=== PATIENT | female | born 1935 | race Caucasian/White ===

== ENCOUNTER 2017-10-09 09:15 | Emergency (ER) | payer MEDICARE, OTHER ==
[~2017-10-09] VITALS: Ht 167.6 cm; Wt 107.3 kg
[~2017-10-09 09:15] MED LIST: BISO5TAB PO; CEPH500C5 PO; CITA20TA11 PO; HYDR12.5 PO; LOSA50TA3 PO; METF500T7 PO; PRAV20TA4 PO
[2017-10-09 09:55] LABS: BASOPHILS % (AUTO) 0.2 % (0-1); EOSINOPHILS # (AUTO) 0.1 X10'3 (0-0.9); HEMATOCRIT 39.8 % (35.0-45.0); HEMOGLOBIN 13.9 g/dl (12.0-16.0); LYMPHOCYTES # (AUTO) 0.9 X10'3 (1.1-4.8); LYMPHOCYTES % (AUTO) 7.5 % (21-51); MEAN CORPUSCULAR HEMOGLOBIN 30.9 PG (27.0-31.0); MEAN CORPUSCULAR HGB CONC 34.9 % (33.0-36.5); MEAN CORPUSCULAR VOLUME 88.5 FL (78-98); MEAN PLATELET VOLUME 7.6 FL (7.4-10.4); MONOCYTES # (AUTO) 0.8 X10'3 (0-0.9); MONOCYTES % (AUTO) 6.6 % (2-12); NEUTROPHILS # (AUTO) 10.4 X10'3 (1.8-7.7); NEUTROPHILS % (AUTO) 84.7 % (42-75); PLATELET COUNT 260 X10'3 (140-440); RED BLOOD COUNT 4.49 X10'6 (4.20-5.60); RED CELL DISTRIBUTION WIDTH 14.3 % (11.5-14.5); WHITE BLOOD COUNT 12.3 X10'3 (4.5-11.0)
[2017-10-09 10:05] LABS: PROTHROMBIN TIME 10.3 SECONDS (9.0-12.0)
[2017-10-09 10:06] LABS: PARTIAL THROMBOPLASTIN TIME 29 SECONDS (22-32)
[2017-10-09 10:09] LABS: ALANINE AMINOTRANSFERASE 19 U/L (12-78); ALBUMIN/GLOBULIN RATIO 1.1 (1.1-1.5); ALKALINE PHOSPHATASE 76 IU/L (46-116); ANION GAP 11 (8-16); ASPARTATE AMINO TRANSFERASE 20 U/L (10-37); BILIRUBIN,TOTAL 0.6 MG/DL (0.1-1.0); BLOOD UREA NITROGEN 16 MG/DL (7-18); BUN/CREATININE RATIO 15.2 (6.6-38.0); CHLORIDE 106 MMOL/L (99-107); CREATININE 1.05 MG/DL (0.40-0.90); GLUCOSE 140 MG/DL (70-104); POTASSIUM 3.6 MMOL/L (3.5-5.1); SODIUM 143 MMOL/L (135-145); TOTAL PROTEIN 7.7 G/DL (6.4-8.2); eGFR 50 ML/MIN
[2017-10-09] MEDS ORDERED: HYDR-565 PO (10:30)
[2017-10-09] MEDS ORDERED: CefTRIAXone 250MG inj IM ONE (10:50)
[2017-10-09] MEDS ORDERED: CefTRIAXone 250MG IM Kit w/LIDOcaine IM ONE (10:50)
[2017-10-09] MEDS ORDERED: azithromycin 250mg tablet PO ONE (10:50)
[2017-10-09 11:16] LABS: CLARITY,URINE CLEAR (Clear); COLOR,URINE STRAW (Yellow); GLUCOSE, URINE NEGATIVE (Neg); KETONES,URINE NEGATIVE (Neg); LEUKOCYTE ESTERASE ,URINE TRACE (Neg); NITRITES, URINE NEGATIVE (Neg); OCCULT BLOOD,URINE TRACE-LYSED (Neg); PROTEIN,URINE NEGATIVE (Neg); UROBILINOGEN,URINE 0.2 E.U/dL (0.2-1.0)
[2017-10-09 11:17] LABS: UA COLLECTION TYPE VOIDED
[2017-10-09 11:22] LABS: BACTERIA,URINE FEW /HPF (Neg); RBC,URINE 0-2 /HPF (0-2); SQUAMOUS EPITHELIAL CELL,UR FEW /LPF (FEW); WBC,URINE 0-4 /HPF (0-4)
[2017-10-09] MEDS ORDERED: NITR100C6 PO (11:36)
[2017-10-09 12:06] VITALS: BP 174/85
== END 2017-10-09 12:00 | disposition home or self-care (01) ==
LOC: ER 09:16
DX: M79.1 Myalgia (principal); R10.31 Right lower quadrant pain; I10 Essential (primary) hypertension; E11.9 Type 2 diabetes mellitus without complications; M19.90 Unspecified osteoarthritis, unspecified site; Z88.0 Allergy status to penicillin; Z88.8 Allergy status to other drugs, medicaments and biological substances; Z91.013 Allergy to seafood; Z79.84 Long term (current) use of oral hypoglycemic drugs; Z79.899 Other long term (current) drug therapy
CPT/HCPCS: 36415; 71045; 80053; 81001; 84484; 85025; 85610; 85730; 87088; 93005; 96372; 99285; J0696

== ENCOUNTER 2018-08-06 17:56 | Emergency (ER) | payer MEDICARE, OTHER ==
[~2018-08-06] VITALS: Ht 162.6 cm; Wt 109.0 kg
[~2018-08-06 17:56] MED LIST changes: -CEPH500C5 PO; +CITA-278 PO; -CITA20TA11 PO; +NITR100C6 PO
[2018-08-06 19:02] VITALS: BP 156/83
[2018-08-06] MEDS ORDERED: CLOT12CR TOP (19:24)
== END 2018-08-06 19:45 | disposition home or self-care (01) ==
LOC: ER 17:57
DX: B37.9 Candidiasis, unspecified (principal); I10 Essential (primary) hypertension; E11.9 Type 2 diabetes mellitus without complications; M19.90 Unspecified osteoarthritis, unspecified site; Z98.890 Other specified postprocedural states; Z88.0 Allergy status to penicillin; Z88.1 Allergy status to other antibiotic agents; Z88.8 Allergy status to other drugs, medicaments and biological substances; Z91.013 Allergy to seafood; Z79.899 Other long term (current) drug therapy
CPT/HCPCS: 99282

== ENCOUNTER 2018-08-23 11:34 | Emergency (ER) | payer MEDICARE, OTHER ==
[~2018-08-23] VITALS: Ht 162.6 cm; Wt 109.5 kg
[~2018-08-23 11:34] MED LIST changes: +CLOT12CR TOP
[2018-08-23 11:44] VITALS: BP 170/98
[2018-08-23] MEDS ORDERED: acetaminophen 325mg tablet PO ONE (12:45)
== END 2018-08-23 13:17 | disposition home or self-care (01) ==
LOC: ER 11:34
DX: S40.011A Contusion of right shoulder, initial encounter (principal); S80.12XA Contusion of left lower leg, initial encounter; S09.90XA Unspecified injury of head, initial encounter; I10 Essential (primary) hypertension; E11.9 Type 2 diabetes mellitus without complications; M19.90 Unspecified osteoarthritis, unspecified site; Z88.0 Allergy status to penicillin; Z88.1 Allergy status to other antibiotic agents; Z88.8 Allergy status to other drugs, medicaments and biological substances; Z91.013 Allergy to seafood; Z79.899 Other long term (current) drug therapy; Z98.890 Other specified postprocedural states; W18.39XA Other fall on same level, initial encounter; Y93.89 Activity, other specified; Y92.89 Other specified places as the place of occurrence of the external cause; Y99.8 Other external cause status
CPT/HCPCS: 73010; 73030; 99284

== ENCOUNTER 2019-01-18 09:27 | Emergency (ER) | payer MEDICARE, OTHER ==
[~2019-01-18] VITALS: Ht 165.1 cm; Wt 110.0 kg
[~2019-01-18 09:27] MED LIST changes: -CITA-278 PO; +CITA20TA28 PO
--- NOTE | 2019-01-18 10:24 | NUR ---
relieving RN for break, pt is resting quietly on gurkarli, forest ranger technician at bedside
[2019-01-18 10:32] LABS: BASOPHILS # (AUTO) 0.1 X10'3 (0-0.2); BASOPHILS % (AUTO) 1.1 % (0-1); EOSINOPHILS # (AUTO) 0.1 X10'3 (0-0.9); EOSINOPHILS % (AUTO) 1.6 % (0-6); HEMOGLOBIN 13.6 g/dl (12.0-16.0); LYMPHOCYTES # (AUTO) 1.2 X10'3 (1.1-4.8); LYMPHOCYTES % (AUTO) 12.4 % (21-51); MEAN CORPUSCULAR HEMOGLOBIN 30.7 PG (27.0-31.0); MEAN CORPUSCULAR VOLUME 90.1 FL (78-98); MONOCYTES # (AUTO) 0.7 X10'3 (0-0.9); MONOCYTES % (AUTO) 7.1 % (2-12); NEUTROPHILS # (AUTO) 7.4 X10'3 (1.8-7.7); NEUTROPHILS % (AUTO) 77.8 % (42-75); PLATELET COUNT 261 X10'3 (140-440); RED BLOOD COUNT 4.44 X10'6 (4.20-5.60); WHITE BLOOD COUNT 9.5 X10'3 (4.5-11.0)
[2019-01-18 10:46] LABS: ALANINE AMINOTRANSFERASE 26 U/L (12-78); ALBUMIN 3.9 G/DL (3.4-5.0); ALBUMIN/GLOBULIN RATIO 1.1 (1.1-1.5); ALKALINE PHOSPHATASE 71 IU/L (46-116); ANION GAP 9 (8-16); ASPARTATE AMINO TRANSFERASE 28 U/L (10-37); BILIRUBIN,TOTAL 0.6 MG/DL (0.1-1.0); BLOOD UREA NITROGEN 16 MG/DL (7-18); CALCIUM 8.9 MG/DL (8.5-10.1); CHLORIDE 105 MMOL/L (99-107); CREATININE 0.89 MG/DL (0.40-0.90); GLUCOSE 118 MG/DL (70-104); POTASSIUM 3.8 MMOL/L (3.5-5.1); SODIUM 139 MMOL/L (135-145); TOTAL CARBON DIOXIDE 25.4 MMOL/L (24-32); TOTAL PROTEIN 7.5 G/DL (6.4-8.2); eGFR 61 ML/MIN
[2019-01-18 10:50] LABS: PARTIAL THROMBOPLASTIN TIME 30 SECONDS (22-32)
[2019-01-18 11:32] VITALS: BP 134/81
== END 2019-01-18 11:33 | disposition home or self-care (01) ==
LOC: ER 09:28
DX: R06.02 Shortness of breath (principal); R10.84 Generalized abdominal pain; R35.0 Frequency of micturition; R20.2 Paresthesia of skin; I10 Essential (primary) hypertension; E11.9 Type 2 diabetes mellitus without complications; M19.90 Unspecified osteoarthritis, unspecified site; Z88.0 Allergy status to penicillin; Z91.013 Allergy to seafood; Z88.8 Allergy status to other drugs, medicaments and biological substances; Z79.84 Long term (current) use of oral hypoglycemic drugs; Z79.899 Other long term (current) drug therapy
CPT/HCPCS: 36415; 71045; 80053; 83880; 84484; 85025; 85610; 85730; 93005; 99284

== ENCOUNTER 2020-06-29 05:13 | Observation (INO) | payer MEDICARE, OTHER ==
[~2020-06-29] VITALS: Ht 162.6 cm; Wt 109.0 kg
[2020-06-29] VITALS (20 sets, daily range): BP systolic 101–178; BP diastolic 52–94
[~2020-06-29 05:13] MED LIST changes: +METF-900 PO; -METF500T7 PO
[2020-06-29] MEDS ORDERED: pantoprazole 40 MG vial IV ONE (06:10)
[2020-06-29] MEDS ORDERED: ondansetron/PF 4mg/2ml inj IV ONE (06:10)
[2020-06-29] MEDS ORDERED: sucralfate 1gm/10ml UD suspension PO SCH (06:10)
[2020-06-29] MEDS ORDERED: famotidine/PF 10 mg/ml inj IV ONE (06:10)
[2020-06-29] MEDS ORDERED: LIDOcaine Viscous 15ml cup MM PRN (06:10)
[2020-06-29] MEDS: mag hydrox/Alum hydrox/simeth 30ml oral suspension PO ONE ×2 (06:10→07:27)
[2020-06-29 06:30] LABS: ALANINE AMINOTRANSFERASE 26 U/L (12-78); ALBUMIN 4.1 G/DL (3.4-5.0); ALBUMIN/GLOBULIN RATIO 1.1 (1.1-1.5); ALKALINE PHOSPHATASE 78 IU/L (46-116); ANION GAP 10 (8-16); ASPARTATE AMINO TRANSFERASE 29 U/L (10-37); BLOOD UREA NITROGEN 15 MG/DL (7-18); BUN/CREATININE RATIO 18.1 (6.6-38.0); CALCIUM 9.3 MG/DL (8.5-10.1); CHLORIDE 103 MMOL/L (99-107); CREATININE 0.83 MG/DL (0.40-0.90); GLUCOSE 158 MG/DL (70-104); LIPASE 78 U/L (73-393); SODIUM 139 MMOL/L (135-145); TOTAL CARBON DIOXIDE 25.9 MMOL/L (24-32); eGFR 65 ML/MIN
[2020-06-29 06:33] LABS: POTASSIUM 4.1 MMOL/L (3.5-5.1)
[2020-06-29] MEDS ORDERED: morphine 4 MG/ML inj SYRINge IV ONE (06:55)
[2020-06-29] MEDS ORDERED: mag hydrox/Alum hydrox/simeth 30ml oral suspension ONE (07:23)
--- NOTE | 2020-06-29 07:30 | NUR ---
PT TAKEN TO CT VIA W/C BY TECH.
[2020-06-29 07:44] LABS: PARTIAL THROMBOPLASTIN TIME 25 SECONDS (22-32)
[2020-06-29] MEDS: metoclopramide 5 mg/ml inj IV ONE ×2 (07:46→07:53)
--- NOTE | 2020-06-29 07:53 | NUR ---
PT VOMTIING WHEN RETURNS FROM CT. DR SINGH ORDERS REGLAN BUT PT REFUSES.
[2020-06-29 07:56] LABS: CLARITY,URINE SLIGHTLY CLOUDY (Clear); COLOR,URINE YELLOW (Yellow); GLUCOSE, URINE NEGATIVE (Neg); KETONES,URINE NEGATIVE (Neg); LEUKOCYTE ESTERASE ,URINE NEGATIVE (Neg); NITRITES, URINE NEGATIVE (Neg); OCCULT BLOOD,URINE TRACE-INTACT (Neg); PROTEIN,URINE NEGATIVE (Neg); UROBILINOGEN,URINE 0.2 E.U/dL (0.2-1.0)
[2020-06-29 08:02] LABS: UA COLLECTION TYPE NON-SPECIFIED
[2020-06-29 08:04] LABS: BACTERIA,URINE FEW /HPF (Neg); FINE GRANULAR CAST 0-3 /LPF (NEGATIVE); HYALINE CASTS 0-3 /LPF (NEGATIVE); MUCUS STRANDS FEW /LPF (Neg); SQUAMOUS EPITHELIAL CELL,UR FEW /LPF (FEW); STARCH,URINE MODERATE /HPF (NEGATIVE); WBC,URINE 0-4 /HPF (0-4)
[2020-06-29 08:26] LABS: BASOPHILS % (AUTO) 0.2 % (0-1); EOSINOPHILS % (AUTO) 0.3 % (0-6); HEMOGLOBIN 14.1 g/dl (12.0-16.0); LYMPHOCYTES # (AUTO) 0.6 X10'3 (1.1-4.8); LYMPHOCYTES % (AUTO) 5.3 % (21-51); MEAN CORPUSCULAR HEMOGLOBIN 30.4 PG (27.0-31.0); MEAN CORPUSCULAR HGB CONC 32.9 g/dL (33.0-36.5); MEAN CORPUSCULAR VOLUME 92.5 FL (78-98); MEAN PLATELET VOLUME 7.8 FL (7.4-10.4); MONOCYTES # (AUTO) 0.1 X10'3 (0-0.9); MONOCYTES % (AUTO) 0.8 % (2-12); NEUTROPHILS # (AUTO) 11.3 X10'3 (1.8-7.7); NEUTROPHILS % (AUTO) 93.4 % (42-75); PLATELET COUNT 325 X10'3 (140-440); RED BLOOD COUNT 4.64 X10'6 (4.20-5.60); RED CELL DISTRIBUTION WIDTH 14.3 % (11.5-14.5); WHITE BLOOD COUNT 12.1 X10'3 (4.5-11.0)
[2020-06-29] MEDS ORDERED: levoFLOXACIN-Levaquin 750MG/D5 150 ML IV ONE (08:50)
[2020-06-29] MEDS ORDERED: normal saline 1000ML IV soln IVB ONE (08:50)
[2020-06-29] MEDS ORDERED: normal saline 1000ml 1,000 ML IV ONE (08:50)
[2020-06-29] MEDS ORDERED: ondansetron/PF 4mg/2ml inj IV PRN ×2 (09:05→12:20)
[2020-06-29] MEDS ORDERED: mag hydrox/Alum hydrox/simeth 30ml oral suspension PO PRN (09:05)
[2020-06-29] MEDS ORDERED: acetaminophen 325mg tablet PO PRN (09:05)
[2020-06-29] MEDS ORDERED: morphine 2 MG/ML inj. syringe IV PRN ×3 (09:05→12:20)
[2020-06-29] MEDS ORDERED: magnesium hydroxide 30ml (MOM) UD suspension PO PRN (09:05)
[2020-06-29] MEDS ORDERED: LORazepam 1 MG tablet PO ONE (09:20)
--- NOTE | 2020-06-29 09:36 | NUR ---
PT WALKS OUTSIDE AND SEEMS CONFUSED, SHE CALLED HER SON TO COME AND GET HER. CONVINCE PT TO COME BACK INTO HER ROOM AND WAIT FOR HER SON THERE.TAKE HER VIA W/C TO HER ROOM. HER SON SHOWS UP AND TALKS TO DR SINGH ABOUT WHY PT IS BEING ADMITTED. PT'S SON CONVINCES PT TO STAY. PT NOW ON THE GURNEY.
--- NOTE | 2020-06-29 10:00 | NUR ---
PT HAS PULLED OUT HER ORIGINAL IV. RESTART A SECOND IV TO RIGHT WRIST.
[2020-06-29] MEDS ORDERED: INDOCYANINE GREEN 25 MG/10 ML VIAL IV ONE (10:15)
[2020-06-29] MEDS ORDERED: BISO1TAB PO (10:31)
[2020-06-29] MEDS ORDERED: ASPI-611 PO (10:31)
[2020-06-29] MEDS ORDERED: BECL7.3A INH (10:37)
[2020-06-29] MEDS ORDERED: NYSPWD TP (10:50)
[2020-06-29] MEDS ORDERED: DIPH-735 PO (10:50)
[2020-06-29] MEDS ORDERED: ALBU6.7H9 INH (10:50)
[2020-06-29] MEDS ORDERED: DICL100G15 TOP (10:50)
[2020-06-29] MEDS ORDERED: BECL7.3A7 IH (10:50)
[2020-06-29] MEDS ORDERED: CARB15DR EACHEYE (10:53)
[2020-06-29] MEDS ORDERED: KETO5DRO75 EACHEYE (10:53)
[2020-06-29] MEDS ORDERED: KEN0.1O TP (10:53)
[2020-06-29] MEDS: normal saline 1000ml 1,000 ML IV SCH ×2 (11:06→19:29)
--- NOTE | 2020-06-29 11:52 | NUR ---
PT TAKEN TO OR FOR SURGERY VIA GURNEY BY HUDSON.
--- NOTE | 2020-06-29 11:59 | NUR ---
REPORT CALLED TO RECOVERY NURSE LUIGI.
[2020-06-29] MEDS ORDERED: LIDOcaine 1% 30ml preserv. free vial ONE (12:07)
[2020-06-29] MEDS ORDERED: BUPIVAcaine/PF 2.5 mg/ml (0.25%) 30ml vial ONE (12:07)
[2020-06-29] MEDS ORDERED: meperidine/PF 25mg/ml syringe IV PRN ×3 (12:20)
[2020-06-29] MEDS ORDERED: proCHLORperazine 10 MG/2 ml inj IV PRN (12:20)
[2020-06-29] MEDS ORDERED: ringers solution, lacted 1,000 ML IV SCH (12:20)
[2020-06-29] MEDS ORDERED: morphine 4 MG/ML inj SYRINge IV PRN (12:20)
[2020-06-29] MEDS ORDERED: sevoflurane 250ml liquid IH ONE (12:41)
[2020-06-29] MEDS ORDERED: ceFAZolin 1000mg inj ONE (12:41)
[2020-06-29] MEDS ORDERED: fentaNYL/PF 50MCG/1 ML 2ML syringe ONE (12:44)
[2020-06-29] MEDS ORDERED: aspirin 81mg tablet.DR PO SCH (12:55)
[2020-06-29] MEDS ORDERED: diphenhydrAMINE 25mg capsule PO PRN (12:55)
[2020-06-29] MEDS ORDERED: polyvinyl alcohol ophthalmic drops 15ml bottle EACHEYE PRN (12:55)
[2020-06-29] MEDS ORDERED: naphazoline/pheniramine eye 1 DROP BOTTLE EACHEYE PRN (12:55)
[2020-06-29] MEDS ORDERED: propofol inj 20 ML IV ONE (12:58)
[2020-06-29] MEDS ORDERED: rocuronium 10mg/ml inj IV ONE (12:58)
[2020-06-29] MEDS ORDERED: sugammadex 200mg/2ml injection IV ONE (14:03)
--- NOTE | 2020-06-29 14:25 | NUR ---
Received from OR via BED, accompanied by Anesthesiologist NADEEN and report given by Anesthesiolgist. PT SLEEPY, OXYGENATING 92% ON 10 LPM O2 VIA MASK, NO RESP DISTRESS NOTED. PT DENIES NAUSEA, MINIMAL C/O PAIN. 4 LARGE BANDAIDS TO ABD TROCAR SITES, CDI. VS SAO2 88-92% ON 10 LPM O2 VIA MASK, SNORING RESPIRATIONS. HYPERTENSIVE. WILL CONTINUE TO MONITOR. SCDS SLEEVES IN PLACE.
[2020-06-29] MEDS: albuterol 2.5 MG/3 ML nebule NEB PRN ×2 (15:12→19:51)
--- NOTE | 2020-06-29 15:15 | NUR ---
PT HAS WET LUNG SOUNDS WITH EXPIRATORY WHEEZES, SAO2 REMAINS 90% ON 10 LPM O2 VIA MASK. NOTIFIED ANESTHESIA, CALLED FOR RESP TX. PT IS SLOW TO AROUSE FROM ANESTHESIA, OPENS EYES NOW TO VERBAL STIMULI, NODS YES/NO TO QUESTIONS. INDICATES THAT POST OP PAIN IS MILD, NO PAIN MEDS GIVEN.
[2020-06-29] MEDS ORDERED: furosemide 20 MG/2 ML vial IV ONE ×2 (15:30→15:41)
--- NOTE | 2020-06-29 16:25 | NUR ---
Report called to receiving nurse. Transferred via BED Belongings WITH PT, 1 BAG CLOTHING AND GLASSES IN CASE. PT WAS GIVEN 20 MG OF LASIX IV, INCONTINENT OF URINE. RESPIRATIONS HAVE EASED UP, NOT LOUD AND WHEEZY. SAO2 REMAINS 90% ON 3 LPM O2 BUT PT SAYS THAT IS NOT ABNORMAL FOR HER. SHE STATES SHE HAS RESP ISSUES AND WEARS O2 AT HOME. VSS. TOLERATING PO FLUIDS WELL. TRANSFERRED TO 3 SURG IN STABLE CONDITION. Special Issues communicated to receiving nurse.
[2020-06-29] MEDS ORDERED: hydrALAZINE 20mg/ml inj. IV PRN (18:10)
--- NOTE | 2020-06-29 19:05 | NUR ---
Problems reprioritized. Patient report given, questions answered & plan of care reviewed with Fausto QUINONEZ.
[2020-06-29] MEDS: budesonide 0.5mg/2ml UD nebule IH SCH (19:51)
[2020-06-29] MEDS: lactobacillus rhamnosus 10,000 MMU CELLS/CAPSULE PO SCH (20:00)
[2020-06-29] MEDS: nystatin 15 GM powder TP SCH (20:00)
[2020-06-29] MEDS: losartan 50mg tablet PO SCH (20:00)
[2020-06-29] MEDS ORDERED: [UNRECOGNIZED DRUG - OTHER] PO SCH (21:00)
[2020-06-29] MEDS ORDERED: atenolol 25mg tablet PO SCH (21:00)
[2020-06-29] MEDS ORDERED: HYDROCHLOROTHIAZIDE PO SCH (21:00)
[2020-06-29] MEDS ORDERED: pravastatin 40mg tablet PO SCH (21:00)
[2020-06-29] MEDS ORDERED: HYDROchlorothiazide 25mg tablet PO SCH (21:00)
[2020-06-29] MEDS ORDERED: BISOPROL PO SCH (21:00)
[2020-06-29] MEDS: clotrimazole topical cream 15gm tube TP SCH (21:17)
[2020-06-29] MEDS: triamcinolone acet 0.1% cream 15gm TP SCH (21:17)
[2020-06-29] MEDS: acetaminophen 325mg tablet PO PRN (22:56)
[2020-06-30] VITALS: BP 122/75
[2020-06-30 05:25] LABS: BASOPHILS % (AUTO) 0.1 % (0-1); EOSINOPHILS % (AUTO) 0.1 % (0-6); HEMATOCRIT 34.4 % (35.0-45.0); HEMOGLOBIN 11.4 g/dl (12.0-16.0); LYMPHOCYTES # (AUTO) 0.4 X10'3 (1.1-4.8); LYMPHOCYTES % (AUTO) 2.6 % (21-51); MEAN CORPUSCULAR HEMOGLOBIN 30.4 PG (27.0-31.0); MEAN CORPUSCULAR HGB CONC 33.3 g/dL (33.0-36.5); MEAN CORPUSCULAR VOLUME 91.3 FL (78-98); MEAN PLATELET VOLUME 8.4 FL (7.4-10.4); MONOCYTES # (AUTO) 1.1 X10'3 (0-0.9); MONOCYTES % (AUTO) 7.9 % (2-12); NEUTROPHILS # (AUTO) 12.6 X10'3 (1.8-7.7); NEUTROPHILS % (AUTO) 89.3 % (42-75); PLATELET COUNT 210 X10'3 (140-440); RED BLOOD COUNT 3.76 X10'6 (4.20-5.60); RED CELL DISTRIBUTION WIDTH 14.7 % (11.5-14.5); WHITE BLOOD COUNT 14.1 X10'3 (4.5-11.0)
[2020-06-30 05:33] LABS: ALBUMIN 2.9 G/DL (3.4-5.0); ANION GAP 8 (8-16); BLOOD UREA NITROGEN 26 MG/DL (7-18); BUN/CREATININE RATIO 17.3 (6.6-38.0); CHLORIDE 103 MMOL/L (99-107); GLUCOSE 140 MG/DL (70-104); POTASSIUM 3.8 MMOL/L (3.5-5.1); SODIUM 137 MMOL/L (135-145); TOTAL CARBON DIOXIDE 25.7 MMOL/L (24-32); eGFR 33 ML/MIN
[2020-06-30] MEDS: normal saline 1000ml 1,000 ML IV SCH ×2 (05:50→15:05)
--- NOTE | 2020-06-30 06:47 | NUR ---
Patient in room [facility] 348. I have received report from Fausto QUINONEZ and had the opportunity to ask questions and assume patient care.
[2020-06-30 06:50] VITALS: BP 109/51
--- NOTE | 2020-06-30 06:57 | NUR ---
Problems reprioritized. Patient report given, questions answered & plan of care reviewed with Cody. Addendum: 06/30/20 at 0658 by Preston Kurtz RN Amended: Links added.
[2020-06-30] MEDS: losartan 50mg tablet PO SCH (07:31)
[2020-06-30] MEDS: lactobacillus rhamnosus 10,000 MMU CELLS/CAPSULE PO SCH (07:31)
[2020-06-30] MEDS: triamcinolone acet 0.1% cream 15gm TP SCH (07:32)
[2020-06-30] MEDS: acetaminophen 325mg tablet PO PRN ×2 (07:34→15:19)
[2020-06-30] MEDS: clotrimazole topical cream 15gm tube TP SCH (07:45)
[2020-06-30] MEDS: nystatin 15 GM powder TP SCH (07:46)
[2020-06-30] MEDS ORDERED: levoFLOXACIN-Levaquin 500mg/D5 100 ML IV SCH (08:00)
[2020-06-30] MEDS ORDERED: citalopram 20mg tablet PO SCH (08:00)
[2020-06-30] MEDS ORDERED: FLU VACC QS2020-21(6MOS UP)/PF 60 MCG/0.5 ML SYRINGE IMVAC ONE (10:00)
[2020-06-30 11:00] VITALS: BP 109/51
[2020-06-30] MEDS: albuterol 2.5 MG/3 ML nebule NEB PRN (11:25)
[2020-06-30] MEDS: budesonide 0.5mg/2ml UD nebule IH SCH (11:25)
--- NOTE | 2020-06-30 17:48 | NUR ---
Patient left with son, resource nurse did discharge teaching with patient in room and also removed the iv at this time. Patient left by all wheel chair with nursing staff at this time to be transported home in private vehicle.
== END 2020-06-30 15:45 | disposition home or self-care (01) ==
LOC: ER 05:13 → ED HOLD 09:02 → UNDOADMIN 09:02 → SUR 3N 11:41 → ED HOLD 16:25
PROVIDERS: ADMIT Family Medicine; ATTEND Family Medicine
DX: K80.00 Calculus of gallbladder with acute cholecystitis without obstruction (principal); Z20.828 Contact with and (suspected) exposure to other viral communicable diseases; I11.0 Hypertensive heart disease with heart failure; I50.9 Heart failure, unspecified; J96.10 Chronic respiratory failure, unspecified whether with hypoxia or hypercapnia; F32.9 Major depressive disorder, single episode, unspecified; E11.9 Type 2 diabetes mellitus without complications; E66.9 Obesity, unspecified; M19.90 Unspecified osteoarthritis, unspecified site; F41.9 Anxiety disorder, unspecified; Z23 Encounter for immunization; Z79.899 Other long term (current) drug therapy; Z88.0 Allergy status to penicillin; Z88.1 Allergy status to other antibiotic agents; Z91.013 Allergy to seafood; Z91.018 Allergy to other foods; Z88.8 Allergy status to other drugs, medicaments and biological substances
CPT/HCPCS: 36415; 47563; 71045; 74176; 80048; 80053; 81001; 82948; 83690; 83880; 84484; 85025; 85610; 85730; 87081; 87635; 93005; 94640; 94760; 96361; 96365; 96366; 96375; 99285; C9113; C9399; G0008; G0378; J0690; J1940; J1956; J2001; J2405; J2704; J3010; J3490; J7030; J7120; S2900; 88304; 96374; A4215; A4618; A7000; J2765; J7626

== ENCOUNTER 2022-03-19 15:00 | Emergency (ER) | payer MEDICARE, OTHER ==
[~2022-03-19] VITALS: Ht 162.6 cm; Wt 100.0 kg
[~2022-03-19 15:00] MED LIST changes: +ALBU6.7H9 INH; +ASPI-611 PO; +BECL7.3A7 IH; +BISO1TAB PO; -BISO5TAB PO; +CARB15DR EACHEYE; +DICL100G15 TOP; +DIPH-735 PO; -HYDR12.5 PO; +KEN0.1O TP; +KETO5DRO75 EACHEYE; -METF-900 PO; -NITR100C6 PO; +NYSPWD TP
[2022-03-19 21:42] VITALS: BP 135/85
== END 2022-03-19 21:38 | disposition home or self-care (01) ==
LOC: ER 15:02
DX: S00.83XA Contusion of other part of head, initial encounter (principal); I10 Essential (primary) hypertension; E11.9 Type 2 diabetes mellitus without complications; M19.90 Unspecified osteoarthritis, unspecified site; Z98.890 Other specified postprocedural states; Z79.82 Long term (current) use of aspirin; Z79.899 Other long term (current) drug therapy; Z88.0 Allergy status to penicillin; Z88.1 Allergy status to other antibiotic agents; Z91.013 Allergy to seafood; Z88.8 Allergy status to other drugs, medicaments and biological substances; Z79.01 Long term (current) use of anticoagulants; W01.0XXA Fall on same level from slipping, tripping and stumbling without subsequent striking against object, initial encounter; Y93.89 Activity, other specified; Y92.89 Other specified places as the place of occurrence of the external cause; Y99.8 Other external cause status
CPT/HCPCS: 70450; 73551; 73560; 73590; 99284; 99285

== ENCOUNTER 2022-06-15 10:51 | Emergency (ER) | payer MEDICARE, OTHER ==
[~2022-06-15] VITALS: Ht 162.6 cm; Wt 102.5 kg
[~2022-06-15 10:51] MED LIST changes: +ALBU6.7H14 INH; -ALBU6.7H9 INH
[2022-06-15 11:07] VITALS: BP 152/70
== END 2022-06-15 12:35 | disposition home or self-care (01) ==
LOC: ER 10:52
DX: S00.03XA Contusion of scalp, initial encounter (principal); S46.912A Strain of unspecified muscle, fascia and tendon at shoulder and upper arm level, left arm, initial encounter; S60.012A Contusion of left thumb without damage to nail, initial encounter; M79.641 Pain in right hand; M79.642 Pain in left hand; M25.512 Pain in left shoulder; I10 Essential (primary) hypertension; E11.9 Type 2 diabetes mellitus without complications; Z88.0 Allergy status to penicillin; Z88.8 Allergy status to other drugs, medicaments and biological substances; Z91.013 Allergy to seafood; W19.XXXA Unspecified fall, initial encounter; Y93.89 Activity, other specified; Y92.89 Other specified places as the place of occurrence of the external cause; Y99.8 Other external cause status
CPT/HCPCS: 70450; 72125; 73030; 73120; 99284